=== PATIENT | male | born 1935 | race Caucasian/White ===

== ENCOUNTER 2020-11-17 09:07 | Inpatient (IN) ==
[2020-11-18] MEDS: *HR* Enoxaparin 40 MG/0.4 ML SYRINGE SQ SCH (04:49)
[2020-11-18 05:15] LABS: Basophils # 0.1 K/mcL (0.0-0.2); Basophils % 0.7 %; Eosinophils # 0.7 K/mcL (0.0-0.6); Eosinophils % 8.8 %; Hematocrit 31.3 % (37.5-50.1); Hemoglobin 10.3 g/dL (12.9-16.9); Immature Granulocytes % 0.7 % (0-4); Lymphocytes # 2.1 K/mcL (0.6-4.6); Lymphocytes % 28.6 %; Mean Corpuscular HGB Conc 32.9 g/dL (31.6-35.5); Mean Corpuscular Volume 94.3 fL (83.0-100.0); Mean Platelet Volume 9.1 fL (9.4-12.4); Monocytes # 0.7 K/mcL (0.0-1.3); Monocytes % 9.7 %; Neutrophils # 3.8 K/mcL (1.6-8.9); Platelet Count 468 K/mcL (140-400); Red Blood Count 3.32 M/mcL (4.19-5.50); Red Cell Distribution Width 14.3 % (11.5-14.5); Segmented Neutrophils % 51.5 %; White Blood Count 7.4 K/mcL (4.3-11.1)
[2020-11-18 05:33] LABS: Albumin 3.2 g/dL (3.5-5.7); Albumin/Globulin Ratio 0.9 (1.1-2.2); Bilirubin,Total 0.3 mg/dL (0.3-1.0); Calcium 9.4 mg/dL (8.6-10.3); Globulin 3.5 g/dL (2.4-3.5); Magnesium 2.1 mg/dL (1.6-2.6); Total Protein 6.7 g/dL (6.4-8.9)
[2020-11-18] MEDS: Finasteride 5 MG TABLET PO SCH (08:38)
[2020-11-18] MEDS ORDERED: Acetaminophen 325 MG TABLET PO PRN (20:38)
[2020-11-18] MEDS: *HR* OxyCODONE/APAP 5/325 TABLET PO PRN (21:18)
[2020-11-19] MEDS: *HR* Enoxaparin 40 MG/0.4 ML SYRINGE SQ SCH (07:01)
[2020-11-19] MEDS: *HR* OxyCODONE/APAP 5/325 TABLET PO PRN ×2 (08:39→21:50)
[2020-11-19] MEDS: Finasteride 5 MG TABLET PO SCH (08:40)
[2020-11-19] MEDS ORDERED: *HR* OxyCODONE/APAP 5/325 TABLET PO PRN (11:10)
[2020-11-20 05:37] LABS: Hematocrit 30.5 % (37.5-50.1); Hemoglobin 9.9 g/dL (12.9-16.9); Mean Corpuscular HGB Conc 32.5 g/dL (31.6-35.5); Mean Corpuscular Hemoglobin 30.9 pg (28.0-33.3); Mean Corpuscular Volume 95.3 fL (83.0-100.0); Mean Platelet Volume 9.1 fL (9.4-12.4); Platelet Count 440 K/mcL (140-400); Red Cell Distribution Width 14.6 % (11.5-14.5); White Blood Count 9.3 K/mcL (4.3-11.1)
[2020-11-20 05:58] LABS: Albumin 3.2 g/dL (3.5-5.7); Bilirubin,Total 0.3 mg/dL (0.3-1.0); Calcium 9.2 mg/dL (8.6-10.3); Globulin 3.3 g/dL (2.4-3.5); Magnesium 2.1 mg/dL (1.6-2.6); Potassium 4.3 mEq/L (3.5-5.1); Total Protein 6.5 g/dL (6.4-8.9)
[2020-11-20] MEDS: *HR* OxyCODONE/APAP 5/325 TABLET PO PRN ×2 (06:15→20:33)
[2020-11-20] MEDS: *HR* Enoxaparin 30 MG/0.3 ML SYRINGE SQ SCH (06:15)
[2020-11-20] MEDS: Finasteride 5 MG TABLET PO SCH (08:39)
[2020-11-21] MEDS: *HR* OxyCODONE/APAP 5/325 TABLET PO PRN ×2 (04:47→21:58)
[2020-11-21] MEDS: *HR* Enoxaparin 30 MG/0.3 ML SYRINGE SQ SCH (04:47)
[2020-11-21] MEDS: Finasteride 5 MG TABLET PO SCH (07:49)
[2020-11-22] MEDS: *HR* Enoxaparin 30 MG/0.3 ML SYRINGE SQ SCH (06:02)
[2020-11-22] MEDS: *HR* OxyCODONE/APAP 5/325 TABLET PO PRN (06:02)
[2020-11-22] MEDS: Finasteride 5 MG TABLET PO SCH (08:02)
[2020-11-22] MEDS: Melatonin 3 MG TABLET PO SCH (20:41)
[2020-11-23] MEDS: *HR* Enoxaparin 30 MG/0.3 ML SYRINGE SQ SCH (04:09)
[2020-11-23] MEDS: Finasteride 5 MG TABLET PO SCH (08:10)
[2020-11-23] MEDS: Melatonin 3 MG TABLET PO SCH (21:01)
[2020-11-24] MEDS: *HR* Enoxaparin 30 MG/0.3 ML SYRINGE SQ SCH (04:30)
[2020-11-24] MEDS: Finasteride 5 MG TABLET PO SCH (09:08)
[2020-11-24] MEDS: Melatonin 3 MG TABLET PO SCH (20:43)
[2020-11-25] MEDS: *HR* Enoxaparin 30 MG/0.3 ML SYRINGE SQ SCH (04:39)
[2020-11-25 07:17] VITALS: BP 136/67
[2020-11-25] MEDS: Finasteride 5 MG TABLET PO SCH (08:31)
== END 2020-11-25 12:25 | disposition home health service (06) | DRG 560 ==
LOC: INPGRE 16:03
PROVIDERS: ADMIT Family Medicine; ATTEND Family Medicine

== ENCOUNTER 2021-12-14 13:59 | Observation (INO) ==
[2021-12-14] MEDS ORDERED: Ondansetron 4 MG/2 ML VIAL IVP ONE (14:19)
[2021-12-14] MEDS ORDERED: Morphine Sulfate 2 MG/ML SYRINGE IVP ONE (14:19)
[2021-12-14] MEDS ORDERED: 0.9 % Sodium Chloride 1,000 ML IVC ONE (14:19)
[2021-12-14] MEDS ORDERED: Iopamidol - 370 500 ML MLS IVP ONE (14:20)
[2021-12-14 14:29] LABS: Basophils # 0.1 K/mcL (0.0-0.2); Basophils % 0.5 %; Eosinophils # 0.1 K/mcL (0.0-0.6); Eosinophils % 0.6 %; Hematocrit 37.1 % (37.5-50.1); Hemoglobin 12.4 g/dL (12.9-16.9); Lymphocytes # 1.9 K/mcL (0.6-4.6); Lymphocytes % 20.5 %; Mean Corpuscular HGB Conc 33.4 g/dL (31.6-35.5); Mean Corpuscular Hemoglobin 31.7 pg (28.0-33.3); Mean Corpuscular Volume 94.9 fL (83.0-100.0); Mean Platelet Volume 8.8 fL (9.4-12.4); Monocytes % 10.4 %; Neutrophils # 6.3 K/mcL (1.6-8.9); Platelet Count 508 K/mcL (140-400); Red Blood Count 3.91 M/mcL (4.19-5.50); Red Cell Distribution Width 13.2 % (11.5-14.5); White Blood Count 9.5 K/mcL (4.3-11.1)
[2021-12-14 14:44] LABS: Albumin 3.3 g/dL (3.5-5.7); Albumin/Globulin Ratio 0.9 (1.1-2.2); Bilirubin,Direct 0.1 mg/dL (0.0-0.2); Bilirubin,Indirect 0.3 mg/dL (0.0-1.0); Bilirubin,Total 0.4 mg/dL (0.3-1.0); Calcium 9.9 mg/dL (8.6-10.3); Globulin 3.5 g/dL (2.4-3.5); Total Protein 6.8 g/dL (6.4-8.9)
[2021-12-14 14:46] LABS: Bilirubin,Urine Negative (Negative); Blood,Urine Moderate (Negative); Clarity,Urine Turbid (Clear); Color,Urine Amber (Yellow); Glucose,Urine (UA) Normal (Normal); Ketones,Urine Negative (Negative); Leukocyte Esterase,Urine Large (Negative); Nitrite,Urine Negative (Negative); PH,Urine 8.5 pH Units (5.0-8.0); Protein,Urine >=300 mg/dL (Neg-Trace); Urobilinogen,Urine Normal (Normal)
[2021-12-14 14:51] LABS: WBC,Urine TNTC per hpf (0-3)
[2021-12-14 14:53] LABS: RBC,Urine Present per hpf (0-3); Squamous Epithelial Cell,Urine Present per hpf (None-Few)
[2021-12-14 14:54] LABS: Amorphous Sediment,Urine Present per hpf (None-Few); Bacteria,Urine Many per hpf (None-Few); Triple Phosphate Crystal,Urine Present per hpf
[2021-12-14] MEDS ORDERED: cefTRIAXone 1,000 MG in Water for inj. (sterile) 10 ML IVP ONE (15:54)
[2021-12-14] MEDS ORDERED: Naloxone 0.4 MG/ML INJ IVP PRN (16:14)
[2021-12-14] MEDS ORDERED: Sennosides/Docusate Sodium TABLET PO PRN (16:20)
[2021-12-14] MEDS ORDERED: 0.9 % Sodium Chloride 1,000 ML IVC SCH (16:30)
[2021-12-14] MEDS: Nicotine 21 MG PATCH.TD24 TD SCH (20:16)
[2021-12-14] MEDS: *HR* Heparin 5,000 UNIT/ML VIAL SQ SCH (21:59)
[2021-12-15] MEDS: *HR* Heparin 5,000 UNIT/ML VIAL SQ SCH ×3 (05:23→22:00)
[2021-12-15 05:43] LABS: Albumin 2.7 g/dL (3.5-5.7); Bilirubin,Total 0.3 mg/dL (0.3-1.0); Calcium 8.8 mg/dL (8.6-10.3); Globulin 2.8 g/dL (2.4-3.5); Potassium 3.8 mEq/L (3.5-5.1); Total Protein 5.5 g/dL (6.4-8.9)
[2021-12-15] MEDS ORDERED: *HR* Enoxaparin 30 MG/0.3 ML SYRINGE SQ SCH (06:00)
[2021-12-15] MEDS: Nicotine 21 MG PATCH.TD24 TD SCH (08:37)
[2021-12-15] MEDS: Finasteride 5 MG TABLET PO SCH (08:39)
[2021-12-15] MEDS: cefTRIAXone 1,000 MG in 0.9 % Sodium Chloride 10 ML IVP SCH (15:57)
[2021-12-16] MEDS: *HR* Heparin 5,000 UNIT/ML VIAL SQ SCH ×3 (06:00→19:51)
[2021-12-16] MEDS: Finasteride 5 MG TABLET PO SCH (08:34)
[2021-12-16] MEDS: Nicotine 21 MG PATCH.TD24 TD SCH (08:34)
[2021-12-16 16:07] LABS: Basophils # 0.1 K/mcL (0.0-0.2); Basophils % 0.6 %; Eosinophils # 0.2 K/mcL (0.0-0.6); Eosinophils % 1.7 %; Hemoglobin 10.2 g/dL (12.9-16.9); Immature Granulocytes % 1.7 % (0-4); Lymphocytes % 21.1 %; Mean Corpuscular HGB Conc 32.9 g/dL (31.6-35.5); Mean Corpuscular Hemoglobin 31.6 pg (28.0-33.3); Mean Platelet Volume 8.7 fL (9.4-12.4); Monocytes # 0.8 K/mcL (0.0-1.3); Monocytes % 8.5 %; Neutrophils # 6.3 K/mcL (1.6-8.9); Platelet Count 447 K/mcL (140-400); Red Blood Count 3.23 M/mcL (4.19-5.50); Red Cell Distribution Width 13.3 % (11.5-14.5); Segmented Neutrophils % 66.4 %; White Blood Count 9.5 K/mcL (4.3-11.1)
[2021-12-16 16:24] LABS: Calcium 8.6 mg/dL (8.6-10.3); Potassium 4.1 mEq/L (3.5-5.1)
[2021-12-16] MEDS: cefTRIAXone 1,000 MG in 0.9 % Sodium Chloride 10 ML IVP SCH (16:28)
[2021-12-17] MEDS: *HR* Heparin 5,000 UNIT/ML VIAL SQ SCH ×3 (05:19→20:10)
[2021-12-17] MEDS: Nicotine 21 MG PATCH.TD24 TD SCH (08:05)
[2021-12-17] MEDS: Finasteride 5 MG TABLET PO SCH (08:05)
[2021-12-18] MEDS: *HR* Heparin 5,000 UNIT/ML VIAL SQ SCH (04:08)
[2021-12-18 04:50] LABS: Basophils # 0.1 K/mcL (0.0-0.2); Basophils % 1.1 %; Eosinophils # 0.3 K/mcL (0.0-0.6); Eosinophils % 3.7 %; Hematocrit 31.1 % (37.5-50.1); Hemoglobin 10.3 g/dL (12.9-16.9); Immature Granulocytes % 1.6 % (0-4); Lymphocytes # 2.3 K/mcL (0.6-4.6); Lymphocytes % 30.7 %; Mean Corpuscular HGB Conc 33.1 g/dL (31.6-35.5); Mean Corpuscular Volume 96.6 fL (83.0-100.0); Mean Platelet Volume 8.9 fL (9.4-12.4); Monocytes # 0.5 K/mcL (0.0-1.3); Monocytes % 6.4 %; Neutrophils # 4.1 K/mcL (1.6-8.9); Platelet Count 472 K/mcL (140-400); Red Blood Count 3.22 M/mcL (4.19-5.50); Red Cell Distribution Width 13.6 % (11.5-14.5); Segmented Neutrophils % 56.5 %; White Blood Count 7.3 K/mcL (4.3-11.1)
[2021-12-18 05:08] LABS: Albumin 2.6 g/dL (3.5-5.7); Bilirubin,Total 0.2 mg/dL (0.3-1.0); Calcium 8.6 mg/dL (8.6-10.3); Globulin 2.5 g/dL (2.4-3.5); Magnesium 2.1 mg/dL (1.6-2.6); Potassium 3.9 mEq/L (3.5-5.1); Total Protein 5.1 g/dL (6.4-8.9)
[2021-12-18] MEDS: Nicotine 21 MG PATCH.TD24 TD SCH (09:14)
[2021-12-18] MEDS: Finasteride 5 MG TABLET PO SCH (09:14)
[2021-12-18 11:31] VITALS: BP 104/57; PULSE 82; RESP 15; TEMP 98.7; O2SAT 95
== END 2021-12-18 15:51 | disposition home or self-care (01) ==
LOC: INPGRE 13:59 → EMEROOGRE 13:59 → INPGRE 16:39
PROVIDERS: ADMIT Internal Medicine; ATTEND Internal Medicine